=== PATIENT | male | born 1965 | race Caucasian/White ===

== ENCOUNTER 2023-08-14 11:04 | Emergency (ER) | payer BC ==
[2023-08-14 11:19] VITALS: BP 143/99; PULSE 96; RESP 20; TEMP 98.4; BMI 27.8
[2023-08-14] MEDS ORDERED: IBUPROFEN 600 MG TABLET (FP) PO ONE (12:15)
[2023-08-14] MEDS ORDERED: LIDOCAINE 5% TOPICAL PATCH ONE (12:16)
[2023-08-14] MEDS ORDERED: MECLIZINE HCL 25 MG TABLET (FP) ONE (12:16)
[2023-08-14] MEDS ORDERED: METHOCARBAMOL 500 MG TABLET ONE (12:16)
[2023-08-14] MEDS: MECLIZINE HCL 25 MG TABLET (FP) PO ONE (12:19)
[2023-08-14] MEDS: LIDOCAINE 5% TOPICAL PATCH TP ONE (12:19)
[2023-08-14] MEDS: IBUPROFEN 600 MG TABLET (FP) PO ONE (12:20)
[2023-08-14] MEDS: METHOCARBAMOL 500 MG TABLET PO ONE (12:21)
[2023-08-14] MEDS ORDERED: LIDOCAINE PATCH REMOVAL MC SCH (22:00)
== END 2023-08-14 13:09 | disposition home or self-care (01) ==
LOC: FER 11:04
DX: S16.1XXA Strain of muscle, fascia and tendon at neck level, initial encounter (principal); R42 Dizziness and giddiness; M54.2 Cervicalgia; X58.XXXA Exposure to other specified factors, initial encounter
CPT/HCPCS: 99283-25